=== PATIENT | male | born 1990 | race African-American/Black ===

== ENCOUNTER 2021-11-27 08:23 | Emergency (ER) | payer SELFPAY ==
[2021-11-27] MEDS ORDERED: Cyclobenzaprine 10 MG TAB ONE (09:30)
[2021-11-27] MEDS ORDERED: Ketorolac Tromethamine 30 MG/ML VIAL ONE ×2 (09:30)
[2021-11-27] MEDS ORDERED: Dexamethasone 4 MG TAB ONE (09:30)
== END 2021-11-27 10:07 | disposition home or self-care (01) ==
LOC: ERS 08:23
DX: S39.012A Strain of muscle, fascia and tendon of lower back, initial encounter (principal); X58.XXXA Exposure to other specified factors, initial encounter
CPT/HCPCS: 96372; 99283; J1885; J8540

== ENCOUNTER 2022-11-23 02:34 | Emergency (ER) | payer OTHER, SELFPAY ==
[2022-11-23] MEDS ORDERED: fentaNYL 50 mcg/mL 1 mL Vial ONE (02:48)
[2022-11-23] MEDS ORDERED: Ondansetron PF 4 MG/2 ML Vial ONE (02:48)
[2022-11-23] MEDS ORDERED: CEFAZOLIN 2 GM VIAL ONE (02:48)
[2022-11-23] MEDS ORDERED: Boostrix 0.5 ML (Tdap) VIAL (>/=7 yrs of age) ONE (02:48)
[2022-11-23 03:01] LABS: #Basophils 0.1 thou/uL (0.0-0.2); #Lymphocytes 2.3 thou/uL (1.20-3.40); #Monocytes 0.8 thou/uL (0.11-0.59); #Neutrophils 5.8 thou/uL (1.40-6.50); %Basophils 0.7 % (0.0-1.0); %Eosinophils 0.5 % (0.0-10.0); %Lymphocytes 25.4 % (21.0-51.0); %Monocytes 8.8 % (0.0-10.0); %Neutrophils 64.6 % (42.0-75.0); Hemoglobin 13.9 g/dL (14.0-18.0); Mean Corpuscular HGB CONC 30.9 g/dL (32.0-36.0); Mean Corpuscular Hemoglobin 28.8 pg (27.0-31.0); Mean Corpuscular Volume 93.4 fl (78.0-98.0); Mean Platelet Volume 8.9 fL (7.4-10.4); Platelet Count 186 10x3/uL (130-400); RBC Distribution Width 12.7 % (11.5-14.5); Red Blood Cell (RBC) Count 4.81 mill/uL (4.70-6.10); White Blood Cell (WBC) Count 8.9 10x3/uL (4.8-10.8)
[2022-11-23 03:11] LABS: PTT 30.3 sec (22.9-36.1); Prothrombin Time 13.3 sec (12.0-14.7)
[2022-11-23 03:50] LABS: Albumin 4.6 g/dL (3.5-5.0)
[2022-11-23 03:51] LABS: Chloride 105 mmol/L (98-107)
[2022-11-23 03:52] LABS: Calcium 9.2 mg/dL (7.8-10.44); Potassium 3.7 mmol/L (3.5-5.1); Sodium 138 mmol/L (136-145)
[2022-11-23] MEDS ORDERED: TETANUS, DIPHTHERIA TOX,ADULT (TDVAX) 0.5 ML VIAL IM ONE (03:52)
[2022-11-23] MEDS ORDERED: Ondansetron ODT 4 MG TAB PO PRN (03:52)
[2022-11-23] MEDS ORDERED: Dextrose 5% in Water 1,000 ML IV PRN (03:52)
[2022-11-23] MEDS ORDERED: Dextrose 50% Abboject 50 ML SYRINGE SLOW IVP PRN (03:52)
[2022-11-23] MEDS ORDERED: Ondansetron PF 4 MG/2 ML Vial IVP PRN (03:52)
[2022-11-23 03:53] LABS: Globulin 3.2 g/dL (2.4-3.5); Glucose 96 mg/dL (70-105); Protein, Total 7.8 g/dL (6.0-8.3)
[2022-11-23 03:54] LABS: Anion Gap 25 mmol/L (10-20); Carbon Dioxide 12 mmol/L (22-29)
[2022-11-23 03:55] LABS: Bilirubin, Total 1.3 mg/dL (0.2-1.2)
[2022-11-23] MEDS ORDERED: traMADol HCl 50 MG TAB PO PRN (03:55)
[2022-11-23 03:56] LABS: Alkaline Phosphatase 42 U/L (40-110); Calc. Creatinine Clearance 0 mL/min (70-130); Estimated GFR 91
[2022-11-23 03:57] LABS: BUN (Urea Nitrogen) 9 mg/dL (8.9-20.6)
[2022-11-23 03:58] LABS: AST (SGOT) 38 U/L (5-34)
[2022-11-23 03:59] LABS: ALT (SGPT) 29 U/L (8-55)
[2022-11-23] MEDS ORDERED: Sodium Chloride 0.9% 1,000 ML IV SCH ×2 (04:00)
[2022-11-23 04:35] LABS: Acetaminophen Less than 10.0 mcg/mL (10.0-30.0); Alcohol 71 mg/dL (Less than 10); Salicylate Less than 8.0 mg/dL (15.0-30.0)
[2022-11-23] MEDS ORDERED: Acetaminophen 325 MG TAB PO SCH (06:00)
[2022-11-23] MEDS ORDERED: traMADol HCl 50 MG TAB PO SCH (06:00)
[2022-11-23] MEDS ORDERED: Famotidine 20 MG TAB PO SCH (09:00)
== END 2022-11-23 05:00 | disposition left against medical advice (07) ==
LOC: EEVIPCON 02:34 → ERS 02:34
DX: S81.831A Puncture wound without foreign body, right lower leg, initial encounter (principal); W34.00XA Accidental discharge from unspecified firearms or gun, initial encounter; Z23 Encounter for immunization
CPT/HCPCS: 36415; 80053; 80307; 83605; 85025; 85610; 85730; 86850; 86900; 86901; 90471; 90715; 96374; 96375; G0390; J2405; J3010